=== PATIENT | female | born 1965 | race Caucasian/White ===

== ENCOUNTER 2018-07-01 13:24 | Day surgery (SDC) | payer MEDICAID, OTHER ==
[2018-07-01] MEDS ORDERED: LR 1,000 ML IV ONE (13:59)
[2018-07-01] MEDS ORDERED: LIDOCAINE 1% 2 ML INJ ID PRN (13:59)
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
[2018-07-01] MEDS ORDERED: LIDOCAINE 1% 300 MG/30 ML SDV ONE (14:41)
[2018-07-01] MEDS ORDERED: BUPIVACAINE 0.5% 30 ML SDV ONE (14:42)
--- NOTE | 2018-07-01 15:03 | PDHPUP ---
History & Physical Update H&P update statement: This history and physical update is based on an assessment of the patient which was completed after admission or registration (within 24 hours), but prior to the surgery/procedure. H&P update: H&P reviewed & patient examined, no change in patient's condition since H&P completed
[2018-07-01] MEDS ORDERED: NALOXONE HCL 0.4 MG/ML INJ IVP PRN (15:28)
[2018-07-01] MEDS ORDERED: ONDANSETRON 4 MG/2 ML VIAL IVP PRN (15:28)
[2018-07-01] MEDS ORDERED: fentaNYL 100 MCG/2 ML INJ IVP PRN (15:28)
[2018-07-01] MEDS ORDERED: KETOROLAC 30 MG/1 ML SDV ONE (15:40)
[2018-07-01] MEDS ORDERED: fentaNYL 100 MCG/2 ML INJ ONE (16:22)
--- NOTE | 2018-07-01 16:24 | POSTOPPROG ---
Post Op Note Date of Operation: 07/01/18 Surgeon: Caleb Horta Gas Stove Servicer Helper: none Anesthesiologist: Kitty Perez Anesthesia: GET(General Endotracheal) Pre-op Diagnosis: Umbilical hernia Post-op Diagnosis: same Procedure: Open repair with mesh Findings: 1.5 cm hernia Inf/Abcess present in the surg proc area at time of surgery?: No Specimen(s): none
--- NOTE | 2018-07-01 16:32 | SUROPNOTE ---
[facility] Operative Report - Surgery Date of surgery: 07/01/2018 Indications for surgery: This is a 53-year-old woman with symptomatic umbilical hernia. She works as a chiropractor. 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 The risks benefits and alternatives to surgery have been clearly discussed. All questions were answered. Preop diagnosis: umbilical hernia Postop diagnosis: Umbilical hernia Procedure: Open umbilical hernia repair with 4.3 cm Ventralex hernia patch Surgeon: Caleb Horta Anesthesiologist: Dr. Dion Perez Findings: 1.5 cm hernia defect Incarcerated preperitoneal/omental fat Fluid given 100 cc crystalloid EBL 10 mL Specimens: None Procedure: The patient was brought into the operating room after identification by 2 independent variables, time-out was performed in the standard fashion for the institution. The abdomen was prepped chloroprep and draped sterilely. The local anesthetic was infused in skin and subcutaneous tissues. Curvilinear incision was made supraumbilically deepened with sharp dissection judicious use of electrocautery for hemostasis. The hernia was identified with a 1.5 cm defect after complete dissection of the hernia contents and the fascia. The contents of the hernia were reduced into the abdomen. Hemostasis was assured. Given the size of the defect and her history of connective tissue disease a 4.3 cm hernia patch was used to buttress the repair. 2-0 Ethibond suture was used to approximate the mesh to the anterior abdominal wall. 0 Vicryl was then used to reapproximate the fascia. The incision was closed in a layered fashion using 3 0 Polysorb and 4 Monocryl. Dermabond was applied. The patient was taken to the operating room in stable condition no immediate complications
[2018-07-01 17:43] VITALS: BP 144/80
== END 2018-07-01 17:21 | disposition home or self-care (01) ==
LOC: FSGY 13:24
PROVIDERS: ATTEND Surgery
PROC: 0WUF0JZ Supplement Abdominal Wall with Synthetic Substitute, Open Approach (ICD-10-PCS; principal; 2018-07-01 14:45)
DX: K42.9 Umbilical hernia without obstruction or gangrene (principal); K58.9 Irritable bowel syndrome, unspecified; Q79.6 Ehlers-Danlos syndromes; Z87.820 Personal history of traumatic brain injury
CPT/HCPCS: C1781; J1885; J3010

== ENCOUNTER 2018-10-13 08:01 | Emergency (ER) | payer MEDICAID ==
--- NOTE | 2018-10-13 08:12 | EDPHY ---
HPI/HX/ROS/PE/MDM Narrative: CHIEF COMPLAINT: Chest pain, shortness of breath. HPI: This patient is a generally healthy 53-year-old female. She arrives today complaining of chest pain and shortness of breath. Alisia night at the gym, she felt she may have pulled a muscle in her right chest. Yesterday, this discomfort progressed into pain across her right clavicle, shoulder, and arm. Today, she has right-sided upper chest pain which "Feels like someone sticking a chopstick through front to back or in from the side." Her symptoms are exacerbated by deep inspiration or by movement, so she feels she is breathing shallowly due to pain. She denies any recent illness. No personal history of clotting disorders, cardiac history. She notes she has an extensive family history of Bessy-Danlos, but has not been officially diagnosed herself. No nausea, vomiting, diarrhea, lightheadedness, weakness or numbness in her extremities, or other associated symptoms. REVIEW OF SYSTEMS: A comprehensive 10 system review of systems is otherwise negative aside from elements mentioned in the history of present illness and medical decision making. PMH: Umbilical hernia repair. Family history of Bessy-Danlos. SOCIAL HISTORY: Lives in [place]. Employed, works as a chiropractor. Does not abuse tobacco, drugs, or alcohol. PHYSICAL EXAM: General:Patient is alert, in no acute distress. ENT:Eyes are normal to inspection. ENT inspection normal. Neck: Normal inspection. Full range of motion. Respiratory:No respiratory distress. Breath sounds normal bilaterally. Cardiovascular: Regular rate and rhythm. Strong peripheral pulses. Normal cap refill. Abdomen:The abdomen is nontender to palpation. There are no peritoneal signs. There are normal bowel sounds. Back: Normal to inspection. No tenderness to palpation. Skin: Normal color. No rash. Warm and dry. Extremities: Normal appearance. Full range of motion. Neuro: Oriented x3. Normal motor function. Normal sensory function. ED Course: 53 year-old female presents with right-sided chest, shoulder, and arm discomfort. Exam is largely unremarkable, no chest or abdominal tenderness. She notes she is concerned for cholecystitis. Plan for x-ray of the chest and limited US abdomen. Plan for EKG, labs including CBC, chemistries, POC troponin , liver, lipase, D-dimer. IV established. Plan to administer 15mg IV Toradol and 1L IV NS for symptom relief. EKG was ordered and interpreted by myself. Please see Quarterly system for official reading. No evidence of ischemia. 08:[address] Dennis, radiologist. Chest x-ray is negative for pneumonia. See radiologist report for further findings. Reviewed laboratory studies. Troponin and D-dimer negative. Labs otherwise largely unremarkable. 09:[address] Alvarez, radiologist. US abdomen is negative for acute processes. Reassessed patient. Discussed imaging and laboratory results. I offered CT chest for further evaluation but the patient declines further workup or interventions at this time. She wishes to go home. Plan to discharge home in good condition. Follow up and return conditions discussed. Referral to cardiology provided. She is comfortable with this plan. - Data Points Imaging Results: Imaging Impressions Chest X-Ray 10/13/18 08:12 Impression: 1. Query airways disease. 2. Borderline cardiac enlargement. 3. Basilar opacities are presumably atelectasis. Results called and discussed with Marcial Cruz MD on 10/13/2018 at 8:34. Abdomen Ultrasound 10/13/18 08:28 Impression: 1. No acute findings. 2. Tiny gallbladder polyps, for which no further follow-up is recommended per the [employer]. 3. Elongated right hepatic lobe, which could be related to a Stevie's lobe ( normal variant) or hepatomegaly. Findings discussed with Marcial Cruz MD 10/13/2018 at 9:32. Imaging: Discussed imaging studies w/ orthopedically impaired teacher Radiologist Laboratory Results: Laboratory Results 10/13/18 08:35 10/13/18 08:35 10/13/18 10/13/18 10/13/18 08:35 08:35 08:35 WBC 12.44 10^3/uL H 10^3/uL (3.80-9.50) RBC 5.10 10^6/uL 10^6/uL (4.18-5.33) Hgb 14.7 g/dL g/dL (12.6-16.3) Hct 43.2 % % (38.0-47.0) MCV 84.7 fL fL (81.5-99.8) MCH 28.8 pg pg (27.9-34.1) MCHC 34.0 g/dL g/dL (32.4-36.7) RDW 13.9 % % (11.5-15.2) Plt Count 272 10^3/uL 10^3/uL (150-400) MPV 9.2 fL fL (8.7-11.7) Neut % (Auto) 72.3 % % (39.3-74.2) Lymph % (Auto) 17.7 % % (15.0-45.0) [place] % (Auto) 8.4 % % (4.5-13.0) Eos % (Auto) 0.9 % % (0.6-7.6) Baso % (Auto) 0.4 % % (0.3-1.7) Nucleat RBC Rel Count 0.0 % % (0.0-0.2) Absolute Neuts (auto) 8.99 10^3/uL H 10^3/uL (1.70-6.50) Absolute Lymphs (auto) 2.20 10^3/uL 10^3/uL (1.00-3.00) Absolute Monos (auto) 1.05 10^3/uL H 10^3/uL (0.30-0.80) Absolute Eos (auto) 0.11 10^3/uL 10^3/uL (0.03-0.40) Absolute Basos (auto) 0.05 10^3/uL 10^3/uL (0.02-0.10) Absolute Nucleated RBC 0.00 10^3/uL 10^3/uL (0-0.01) Immature Gran % 0.3 % % (0.0-1.1) Immature Gran # 0.04 10^3/uL 10^3/uL (0.00-0.10) D-Dimer 0.50 ug/mLFEU ug/mLFEU (0.00-0.50) Sodium 140 mEq/L mEq/L (135-145) Potassium 4.3 mEq/L mEq/L (3.5-5.2) Chloride 108 mEq/L mEq/L (97-110) Carbon Dioxide 20 mEq/l L mEq/l (22-31) Anion Gap 12 mEq/L mEq/L (6-14) BUN 11 mg/dL mg/dL (7-23) Creatinine 0.9 mg/dL mg/dL (0.6-1.0) Estimated GFR > 60 Glucose 102 mg/dL H mg/dL (70-100) Calcium 8.8 mg/dL mg/dL (8.5-10.4) Total Bilirubin 0.7 mg/dL mg/dL (0.1-1.4) Conjugated Bilirubin 0.3 mg/dL mg/dL (0.0-0.5) Unconjugated Bilirubin 0.4 mg/dL mg/dL (0.0-1.1) AST 18 IU/L IU/L (14-46) ALT 27 IU/L IU/L (9-52) Alkaline Phosphatase 77 IU/L IU/L (38-126) POC Troponin I Total Protein 7.7 g/dL g/dL (6.3-8.2) Albumin 4.4 g/dL g/dL (3.5-5.0) Lipase 113 IU/L IU/L (23-300) 10/13/18 08:32 WBC RBC Hgb Hct MCV MCH MCHC RDW Plt Count MPV Neut % (Auto) Lymph % (Auto) [place] % (Auto) Eos % (Auto) Baso % (Auto) Nucleat RBC Rel Count Absolute Neuts (auto) Absolute Lymphs (auto) Absolute Monos (auto) Absolute Eos (auto) Absolute Basos (auto) Absolute Nucleated RBC Immature Gran % Immature Gran # D-Dimer Sodium Potassium Chloride Carbon Dioxide Anion Gap BUN Creatinine Estimated GFR Glucose Calcium Total Bilirubin Conjugated Bilirubin Unconjugated Bilirubin AST ALT Alkaline Phosphatase POC Troponin I 0.00 ng/mL ng/mL (0.00-0.08) Total Protein Albumin Lipase Medications Given: Discontinued Medications Sodium Chloride (Ns) 1,000 mls @ 0 mls/hr IV EDNOW ONE; Wide Open PRN Reason: Protocol Stop: 10/13/18 08:29 Last Admin: 10/13/18 08:47 Dose: 1,000 mls Ketorolac Tromethamine (Toradol) 15 mg IVP EDNOW ONE Stop: 10/13/18 08:29 Last Admin: 10/13/18 08:46 Dose: 15 mg Point of Care Test Results: Chemistry 10/13/18 08:32 POC Troponin I 0.00 ng/mL ng/mL (0.00-0.08) General Time Seen by Provider: 10/13/18 08:09 Initial Vital Signs: Initial Vital Signs Temperature (C) 37.0 C 10/13/18 08:04 Heart Rate 86 10/13/18 08:04 Respiratory Rate 16 10/13/18 08:04 Blood Pressure 141/93 H 10/13/18 08:04 O2 Sat (%) 96 10/13/18 08:04 O2 Delivery Mode Room Air Allergies/Adverse Reactions: Penicillins Allergy (Verified 10/13/18 08:04) Dyspnea Home Medications: Medication Instructions Recorded Tramadol HCl 06/30/18 Departure - Departure Disposition: Home, Routine, Self-Care Clinical Impression: Chest wall pain, Musculoskeletal pain of right upper extremity Condition: Good Instructions: Chest Wall Pain (ED) Additional Instructions: Follow-up with your primary doctor within 2-3 days. Return to the Emergency Department for fever, chest pain, shortness of breath, increasing pain or other worsening of condition. Follow up with a timers inspector for further testing. As we discussed, it is impossible to fully rule out heart disease as the cause of your chest pain in the emergency department. We would be happy to reevaluate you and observe you in the hospital at any time. Referrals: Heather Jang MD [Medical Doctor] - As per Instructions Daljit Zimmerman MD [Medical Doctor] - As per Instructions Report Scribed for: Marcial Cruz Report Scribed by: Josi Ugalde Date of Report: 10/13/18 Time of Report: 08:12 Physician Review and Approval Statement: Portions of this note were transcribed by an ED scribe. I personally performed the history, physical exam, and medical decision making; and confirm the accuracy of the information in the transcribed note.
[2018-10-13] MEDS ORDERED: NS 1,000 ML IV ONE (08:28)
[2018-10-13] MEDS ORDERED: KETOROLAC 30 MG/1 ML SDV IVP ONE (08:28)
[2018-10-13 08:45] LABS: PLATELET COUNT 272 10^3/uL (150-400)
[2018-10-13 10:02] VITALS: BP 134/86
--- NOTE | 2018-10-13 10:49 | CPEKG ---
Test Reason : OPEN Blood Pressure : / mmHG Vent. Rate : 086 BPM Atrial Rate : 086 BPM P-R Int : 148 ms QRS Dur : 091 ms QT Int : 379 ms P-R-T Axes : 076 -17 015 degrees QTc Int : 454 ms Sinus rhythm Borderline left axis deviation Confirmed by Marcial Cruz ([id number] on 10/13/2018 10:48:51 AM Referred By: Marcial Cruz Confirmed By:Marcial Cruz
== END 2018-10-13 10:01 | disposition home or self-care (01) ==
DX: R07.89 Other chest pain (principal); M79.621 Pain in right upper arm; K82.4 Cholesterolosis of gallbladder; E86.9 Volume depletion, unspecified
CPT/HCPCS: 84484-ER; 96374; J1885